=== PATIENT | female | born 1980 | race Hispanic/Latino ===

== ENCOUNTER 2021-09-28 21:16 | Emergency (ER) | payer BC ==
--- NOTE | 2021-09-28 23:54 | EDPHYS ---
[facility] Name: Pat Phelps Age: 41 yrs Sex: Female : 1980 Arrival Date: 09/28/2021 Time: 21:41 Bed 9 Private MD: ED Physician Nakul Huggins HPI: 09/29 07:43 This 41 yrs old Female presents to ER via Wheelchair with complaints of Ankle kdr Injury. 07:43 The patient presents with decreased range of motion, an injury, pain, that is acute, kdr tenderness. The complaints affect the left ankle. Onset: The symptoms/episode began/occurred suddenly, just prior to arrival, today. Context: resulted from Jumped off a cabinet onto the floor and felt a pop in her lateral left ankle. Associated signs and symptoms: The patient has no apparent associated signs or symptoms. Modifying factors: The symptoms are alleviated by nothing, the symptoms are aggravated by weight bearing, movement. Severity of symptoms: At their worst the symptoms were mild, moderate, just prior to arrival, in the emergency department the symptoms are unchanged. The patient has not experienced similar symptoms in the past. The patient has not recently seen a physician. 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 - Social history:: Smoking status: Patient reports the use of cigarette tobacco products, denies chronic smoking, but will smoke occasionally, cigars. ROS: 09/29 07:43 Constitutional: Negative for fever, chills, and weight loss. kdr MS/extremity: Positive for decreased range of motion, pain, swelling, tenderness, of the left lateral malleolus. Exam: 07:43 Constitutional: This is a well developed, well nourished patient who is awake, alert, kdr and in no acute distress. 07:43 Musculoskeletal/extremity: Extremities: grossly normal except: pain, swelling, tenderness. Vital Signs: 09/28 22:14 BP 112 / 74; Pulse 80; Resp 18; Temp 98.4; Pulse Ox 100% ; Weight 58.06 kg; Height 4 al4 ft. 11 in. (149.86 cm); Pain 7/10; 22:14 Body Mass Index 25.85 (58.06 kg, 149.86 cm) al4 MDM: 23:54 Patient medically screened. kdr 09/29 07:43 Data reviewed: vital signs, nurses notes, radiologic studies. Counseling: I had a kdr detailed discussion with the patient and/or guardian regarding: the historical points, exam findings, and any diagnostic results supporting the discharge/admit diagnosis, radiology results, the need for outpatient follow up. 09/28 22:23 Order name: XRAY Ankle LEFT 3 view bb 09/28 23:53 Order name: Crutches; Complete Time: 00:26 kdr 09/28 23:53 Order name: Aircast Ankle Splint; Complete Time: 00:26 kdr Administered Medications: No medications were administered Disposition Summary: 09/28/21 23:54 Discharge Ordered Location: Home kdr Problem: new kdr Symptoms: have improved kdr Condition: Stable kdr Diagnosis - Sprain of ankle kdr - Sprain of deltoid ligament of right ankle kdr Followup: kdr - With: Private Physician - When: 2 - 3 days - Reason: If symptoms return, Further diagnostic work-up, Recheck today's complaints, Continuance of care, Re-evaluation by your physician Discharge Instructions: - Discharge Summary Sheet kdr - Ankle Sprain, [id number] kdr Forms: - Medication Reconciliation Form kdr - Thank You Letter kdr - Prescription Opioid Use kdr Prescriptions: - Ibuprofen 600 mg Oral Tablet - take 1 tablet by ORAL route every 6 hours As needed take with food; 15 tablet; kdr Refills: 0, Product Selection Permitted - Tramadol 50 mg Oral Tablet - take 1 tablet by ORAL route every 8 hours as needed; 12 tablet; Refills: 0, kdr Product Selection Permitted Signatures: Dispatcher [employer] Nakul Marshall MD MD kdr Augusto Garnett al4
--- NOTE | 2021-09-28 23:54 | ER ---
Nurse's Notes [facility] Name: Pat Phelps Age: 41 yrs Sex: Female : 1980 Arrival Date: 09/28/2021 Time: 21:41 Bed 9 Private MD: Diagnosis: Sprain of ankle;Sprain of deltoid ligament of right ankle Presentation: 09/28 22:14 Chief complaint: Patient states: jumped off counter and "snapped" L ankle. Coronavirus al4 screen: Vaccine status: Patient reports receiving the 2nd dose of the covid vaccine. Urge. Ebola Screen: No symptoms or risks identified at this time. Initial Sepsis Screen: Does the patient meet any 2 criteria? No. Patient's initial sepsis screen is negative. Does the patient have a suspected source of infection? No. Patient's initial sepsis screen is negative. Risk Assessment: Do you want to hurt yourself or someone else? Patient reports no desire to harm self or others. Onset of symptoms was September 28, 2021. 22:14 Method Of Arrival: Wheelchair al4 22:14 Acuity: MORGAN 4 al4 Triage Assessment: 22:16 General: Appears in no apparent distress. uncomfortable, Behavior is calm, cooperative. al4 Pain: Complains of pain in left lateral ankle and lateral aspect of left foot Pain currently is 7 out of 10 on a pain scale. Neuro: Level of Consciousness is awake, alert, obeys commands, Oriented to person, place, time, situation. Cardiovascular: Capillary refill < 3 seconds Patient's skin is warm and dry. Respiratory: Airway is patent Respiratory effort is unlabored, Respiratory pattern is regular. Musculoskeletal: Circulation, motion, and sensation intact. 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 - Social history:: Smoking status: Patient reports the use of cigarette tobacco products, denies chronic smoking, but will smoke occasionally, cigars. Screenin:00 Abuse screen: Denies threats or abuse. Nutritional screening: No deficits noted. bb Tuberculosis screening: No symptoms or risk factors identified. Fall Risk None identified. Assessment: 23:00 General: Appears in no apparent distress. uncomfortable, slender, Behavior is calm, bb cooperative, Reports pain in left ankle. Pain: Complains of pain in left lateral ankle. Neuro: Level of Consciousness is awake, alert, obeys commands, Oriented to person, place, time, situation. Cardiovascular: Capillary refill < 3 seconds Patient's skin is warm and dry. Respiratory: Airway is patent Respiratory effort is even, unlabored, Respiratory pattern is regular. GI: No signs and/or symptoms were reported involving the gastrointestinal system. Derm: Skin is pink, warm \\T\\ dry. Musculoskeletal: Circulation, motion, and sensation intact. Swelling present in left lateral ankle. 09/29 00:25 Reassessment: Patient is alert, oriented x 3, equal unlabored respirations, skin bb warm/dry/pink. pt verbalized understanding of and agrees to plan of care splint to left ankle in place pt instructed on crutch walking pt assisted to exit via wheelchair accompanied by family. Vital Signs: 09/28 22:14 BP 112 / 74; Pulse 80; Resp 18; Temp 98.4; Pulse Ox 100% ; Weight 58.06 kg; Height 4 al4 ft. 11 in. (149.86 cm); Pain 7/10; 22:14 Body Mass Index 25.85 (58.06 kg, 149.86 cm) al4 ED Course: 21:41 Patient arrived in ED. es 22:15 Triage completed. al4 22:16 Arm band placed on right wrist. al4 22:55 Nakul Huggins MD is Attending Physician. kdr 23:00 Patient has correct armband on for positive identification. bb 23:00 No provider procedures requiring assistance completed. Patient did not have IV access bb during this emergency room visit. 23:02 XRAY Ankle LEFT 3 view In Process Unspecified. EDMS 09/29 00:23 Krystle Farrell, BLAYNE is Primary Nurse. bb Administered Medications: No medications were administered Outcome: 09/28 23:54 Discharge ordered by . kdr 09/29 00:26 Discharged to home via wheelchair, with crutches, with family. bb Condition: stable Discharge instructions given to patient, Instructed on discharge instructions, follow up and referral plans. no driving heavy equipment, medication usage, crutch walking, Demonstrated understanding of instructions, follow-up care, medications, crutch walking, Prescriptions given X 2. 00:26 Patient left the ED. bb Signatures: Dispatcher [employer] Nakul Marshall MD MD kdr Salyer, Edna es Ballard, Brenda, RN RN Augusto Schreiber
[2021-09-29 01:33] VITALS: BP 112/74; TEMP 98.4; O2SAT 100
--- NOTE | 2021-09-29 20:54 | RAD REPORT ---
EXAM DESCRIPTION: RAD - Ankle Left 3 View - 09/28/2021 11:03 pm CLINICAL HISTORY: 41 years Female, PAIN left ankle pain TECHNIQUE: 3 views COMPARISON: None. FINDINGS: BONES: No acute fracture or dislocation. Ankle mortise is well-preserved. SOFT TISSUES: Mild lateral malleolar soft tissue swelling. No radiopaque foreign body. IMPRESSION: 1. No acute fracture. 2. Mild lateral malleolar soft tissue swelling. Electronically signed by: Suresh Garza MD 09/28/2021 11:20 PM CDT Due to temporary technical issues with the PACS/Fluency reporting system, reports are being signed by the in house radiologists without review as a courtesy to insure prompt reporting. The interpreting radiologist is fully responsible for the content of the report.
== END 2021-09-29 00:26 | disposition home or self-care (01) ==
LOC: ER 21:16
DX: S93.421A Sprain of deltoid ligament of right ankle, initial encounter (principal); F17.290 Nicotine dependence, other tobacco product, uncomplicated
CPT/HCPCS: 99283